=== PATIENT | female | born 1950 | race Caucasian/White ===

== ENCOUNTER → 2021-04-04 | Outpatient (CLI) | payer BC, MEDICARE | LOC: RAD 12:48 | DX: M25.551 Pain in right hip (principal); M54.31 Sciatica, right side | CPT/HCPCS: 72100; 73502 ==

== ENCOUNTER → 2021-04-25 | Outpatient (CLI) | payer MEDICARE, OTHER | LOC: EMI 04-23 08:00 | DX: M51.36 Other intervertebral disc degeneration, lumbar region (principal); M41.9 Scoliosis, unspecified; M51.37 Other intervertebral disc degeneration, lumbosacral region | CPT/HCPCS: 72148 ==

== ENCOUNTER → 2021-05-08 | Outpatient (CLI) | payer MEDICARE | LOC: EXRD 13:38 | DX: M25.511 Pain in right shoulder (principal) | CPT/HCPCS: 73030 ==